=== PATIENT | male | born 1945 | race Caucasian/White ===

== ENCOUNTER → 2016-08-21 | Day surgery (SDC) | payer OTHER ==
[~2016-08-21] VITALS: Ht 175.2 cm; Wt 104.3 kg
[~2016-08-21] MED LIST: 'TENORMIN50 MG PO; SIMVASTATIN40 MG PO
--- NOTE | ~2016-08-21 | O ---
[place], [place] OPERATIVE NOTE NAME: REMINGTON OROSCO UNIT #: [id number] ROOM: DOCTOR: JACQUI SAMS MD BIRTHDATE: [birth year] DOS: 08/21/2016 INDICATIONS: The patient has presented with colonic screening concerns. ALLERGIES: No known medication. FAMILY HISTORY: Noncontributory. PAST SURGICAL HISTORY: Hemorrhoid. PAST MEDICAL HISTORY: Hypertension, hypercholesterolemia. SOCIAL HISTORY: Nonsmoker. Rare alcohol consumer. PROCEDURE: Todays' procedure part of investigation is colonoscopy. PREMEDICATION: Versed and Diprivan. SCOPE: Olympus forward-viewing colonoscope 10L video. REPORT: After putting the patient in the left lateral position and after application of lubricant to rectal pouch and digital examination, scope was introduced. Thereafter, under direct visualization, I advanced through the length of colon without difficulty. Two polypoid lesions in the rectal pouch with piecemeal polypectomy removed. Another polypoid lesion, again sessile in character in sigmoid colon, with piecemeal polypectomy eradicated. Diverticulosis seen. Base of the cecum explored, appendiceal orifice identified, and ileocecal valve was defined. The patient was gradually extubated and tolerated the procedure well. IMPRESSION: Sessile colonic polyp, sigmoid colon and rectal pouch, status post piecemeal polypectomy; diverticulosis. PLAN: High-fiber fruit diet. ACTIVITY: Ad kiki. FOLLOWUP: Routinely with you in office, p.r.n. visit with us in [facility]. I thank you very much indeed for your kind referral. [place], [place] OPERATIVE NOTE NAME: REMINGTON OROSCO UNIT #: [id number] ROOM: DOCTOR: JACQUI SAMS MD BIRTHDATE: [birth year] JACQUI SAMS MD CM:OPRECORD:OPERATIVE NOTE 1204 1514 JACQUI SAMS MD 08/21/16 1514 interface
[2016-08-21 10:07] VITALS: BP 145/71
[2016-08-21 11:55] VITALS: BP 93/45
[2016-08-21 12:10] VITALS: BP 116/62
[2016-08-21 12:25] VITALS: BP 142/77
== END | disposition home or self-care (01) ==
LOC: SDC 08-20 08:00
DX: Z12.11 Encounter for screening for malignant neoplasm of colon (principal); K63.5 Polyp of colon; K62.1 Rectal polyp; I10 Essential (primary) hypertension; E78.00 Pure hypercholesterolemia, unspecified; K57.30 Diverticulosis of large intestine without perforation or abscess without bleeding; Z82.49 Family history of ischemic heart disease and other diseases of the circulatory system; Z98.890 Other specified postprocedural states

== ENCOUNTER → 2019-08-17 | Outpatient (CLI) | payer OTHER ==
[2019-08-17 08:09] LABS: CREATININE 1.12 mg/dL (0.70-1.30)
== END | disposition home or self-care (01) ==
LOC: LAB 07:30 → CT 08:00
PROVIDERS: Radiology Diagnostic Radiology
DX: I71.2 Thoracic aortic aneurysm, without rupture (principal); R59.9 Enlarged lymph nodes, unspecified; I25.10 Atherosclerotic heart disease of native coronary artery without angina pectoris

== ENCOUNTER → 2019-09-08 | Outpatient (CLI) | payer OTHER ==
[~2019-09-08] MED LIST changes: +ASPIRIN81 M1 PO; +FORTAMET500 MG PO; +METOPROLOL TA37.5 MG PO; +TERAZOSIN HYDROC5 MG PO; +VITAMIN D250 MCG PO
--- NOTE | 2019-09-08 08:00 | NUR ---
INFORMED CONSENT OBTAINED FOR EXERCISE CARDIOLITE STRESS TEST WITH DR. DAMON. RESTING EKG RBBB WITH A SUPINE HR OF 63 WITH BP OF 140/76 AND HR OF 73 WITH BP OF 132/74 IN STANDING POSITION. PT COMPLETED 6:00 OF A RYAN PROTOCOL WITH COMPLETION OF STAGE II AT 2.5 MPH AND 12% GRADE. REACHED A PEAK HR OF 134 WHICH IS 92% OF PREDICTED MAX WITH A PEAK BP OF 160/50. TEST TERMINATED BECAUSE OF FATIGUE AND SOB. HAD NO CHEST PAIN OR ANY EKG CHANGES. DID HAVE PVC'S WITH COUPLETS WITH INCREASE IN STAGE II. HAS AN AVERAGE EXERCISE TOLERANCE. LAST RECOVERY HR OF 97 WITH BP OF 158/62. AWAITING SCANNING IN STABLE CONDITION.
== END | disposition home or self-care (01) ==
LOC: CARD 00:04
DX: I25.10 Atherosclerotic heart disease of native coronary artery without angina pectoris (principal); R73.03 Prediabetes

== ENCOUNTER 2022-05-05 18:34 | Emergency (ER) | payer OTHER ==
[~2022-05-05] VITALS: Ht 175.2 cm; Wt 97.5 kg
[2022-05-05] MEDS ORDERED: ATORVASTATIN CA40 M1 PO (19:03)
[2022-05-05] MEDS ORDERED: Lopressor25 MG PO (19:04)
[2022-05-05] MEDS ORDERED: OMEPRAZOLE MAGN20 MG PO (19:06)
[2022-05-05 19:27] LABS: BASO % 0.1 % (0.0-1.0); EOS % 0.3 % (1.0-4.0); HEMATOCRIT 42.1 % (42.0-52.0); LYMPH # 1.2 10*3/uL (1.3-4.4); LYMPH % 15.5 % (27.0-41.0); MEAN CELL VOLUME 86.6 fl (80.0-94.0); MEAN CORPUSCULAR HGB 29.6 pg (27.0-31.0); MEAN CORPUSCULAR HGB CONC 34.2 g/dl (33.0-37.0); MEAN PLATELET VOLUME 10.4 fl (9.6-12.3); MONO # 0.3 10*3/uL (0.1-1.0); MONO % 3.5 % (3.0-9.0); NEUT % 80.2 % (47.0-73.0); PLATELET COUNT AUTOMATED 159 10*3/uL (130-400); RED BLOOD COUNT 4.86 10*6/uL (4.50-5.90); RED CELL DISTRI WIDTH 13.4 % (0-14.5); WHITE BLOOD COUNT 7.5 10*3/uL (4.8-10.8)
[2022-05-05 20:11] LABS: ALKALINE PHOSPHATASE 59 U/L (46-116); BUN 12 mg/dl (9-23); CHLORIDE 103 mmol/L (98-107); SGPT/ALT 24 U/L (10-49); THYROID STIM HORMONE (HS) 0.672 uIU/ml (0.550-4.780); TOTAL PROTEIN 6.8 gm/dL (6.0-8.0)
[2022-05-05] MEDS ORDERED: Meclizine25 MG PO (20:30)
[2022-05-05] MEDS ORDERED: ONDANSETRON4 MG SL (20:30)
== END 2022-05-05 20:59 | disposition home or self-care (01) ==
LOC: ED 18:34
PROVIDERS: Emergency Medicine
DX: H81.10 Benign paroxysmal vertigo, unspecified ear (principal); Z88.8 Allergy status to other drugs, medicaments and biological substances; Z98.890 Other specified postprocedural states; Z79.899 Other long term (current) drug therapy

== ENCOUNTER → 2022-05-07 | Outpatient (CLI) | payer OTHER ==
[~2022-05-07] MED LIST changes: +ATORVASTATIN CA40 M1 PO; +Lopressor25 MG PO; +Meclizine25 MG PO; +OMEPRAZOLE MAGN20 MG PO; +ONDANSETRON4 MG SL
== END | disposition home or self-care (01) ==
LOC: US 01:11
PROVIDERS: ATTEND Internal Medicine
DX: I65.23 Occlusion and stenosis of bilateral carotid arteries (principal); I10 Essential (primary) hypertension; R42 Dizziness and giddiness

== ENCOUNTER → 2023-12-30 | Outpatient (CLI) | payer MEDICARE | END | disposition home or self-care (01) | LOC: CARD 00:19 | PROVIDERS: ATTEND Internal Medicine | DX: I08.0 Rheumatic disorders of both mitral and aortic valves (principal); I11.9 Hypertensive heart disease without heart failure ==